=== PATIENT | male | born 1990 | race Caucasian/White ===

== ENCOUNTER 2018-08-23 11:07 | Emergency (ER) | payer OTHER ==
[~2018-08-23] VITALS: Ht 175.3 cm; Wt 66.0 kg
[2018-08-23] MEDS ORDERED: MORPHINE SULFATE 4 MG/ML, 1ML ONE (12:14)
[2018-08-23] MEDS ORDERED: ONDANSETRON 2MG/ML, 2ML ONE (12:14)
[2018-08-23] MEDS ORDERED: SODIUM CHLORIDE FLUSH 10ML SYR IVF ONE (12:30)
[2018-08-23] MEDS ORDERED: ONDANSETRON 2MG/ML, 2ML IVPush ONE ×2 (12:30→13:30)
[2018-08-23] MEDS ORDERED: MORPHINE SULFATE 4 MG/ML, 1ML IVPush PRN (12:30)
[2018-08-23 13:13] VITALS: BP 135/87
[2018-08-23] MEDS ORDERED: HYDROmorphone 2 MG/ML, 1ML ONE (13:29)
[2018-08-23] MEDS ORDERED: HYDROmorphone 2 MG/ML, 1ML IVPush PRN (13:30)
[2018-08-23] MEDS ORDERED: IBUPROFEN 200 MG TABLET ONE ×2 (15:42)
[2018-08-23] MEDS ORDERED: IBUPROFEN 200 MG TABLET PO ONE (16:00)
== END 2018-08-23 14:47 | disposition home or self-care (01) ==
LOC: ED 14:41
DX: S32.591A Other specified fracture of right pubis, initial encounter for closed fracture (principal); S32.399A Other fracture of unspecified ilium, initial encounter for closed fracture; S32.47 Fracture of medial wall of acetabulum; V00.131A Fall from skateboard, initial encounter; Y93.51 Activity, roller skating (inline) and skateboarding; Y99.8 Other external cause status; Y92.328 Other athletic field as the place of occurrence of the external cause
CPT/HCPCS: 73502; 73700; 96374; 96375; 99284; J1170; J2405